=== PATIENT | male | born 1995 | race Caucasian/White ===

== ENCOUNTER 2018-01-01 05:53 | Emergency (ER) | payer SELFPAY ==
[2018-01-01 06:56] VITALS: BP 130/91
[2018-01-01] MEDS ORDERED: Ondansetron 4 MG Tab.DIS PO ONE (07:08)
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
== END 2018-01-01 08:03 | disposition home or self-care (01) ==
LOC: JP.ED 05:53
DX: F07.81 Postconcussional syndrome (principal)
CPT/HCPCS: 36415; 70450; 80048; 85025; 99284; A9270

== ENCOUNTER 2025-03-30 10:38 | Emergency (ER) | payer SELFPAY ==
[2025-03-30] MEDS: Iopamidol 612 MG/ML 100 ML Bottle IV PRN (14:39)
[2025-03-30] MEDS: Sodium Chloride 0.9% 10 ML Syringe FLUSH ONE (14:39)
[2025-03-30 15:51] VITALS: BP 132/75; PULSE 88
== END 2025-03-30 16:25 | disposition home or self-care (01) ==
LOC: JP.ED 10:38
DX: L70.0 Acne vulgaris (principal)
CPT/HCPCS: 71260; 93005; 93010; 99283; 99285; Q9967